=== PATIENT | male | born 1975 | race Native Hawaiian/Other Pacific Islander ===

== ENCOUNTER 2017-03-24 14:42 | Emergency (ER) | payer OTHER ==
--- NOTE | 2017-03-24 15:33 | XRay Report ---
ROUTINE CHEST, TWO VIEWS: PA and lateral views demonstrate the heart and mediastinal contour to be of normal size and shape. The lungs are clear but hypoventilated and the soft tissues and bony structures are normal. IMPRESSION: Normal study. Hypoventilation.
--- NOTE | 2017-03-24 20:18 | Emergency Department Report ---
ED ENT HPI - General Chief complaint: Upper Respiratory Infection Stated complaint: SORE THROAT Time Seen by Provider: 03/24/17 19:45 Source: patient, family Mode of arrival: Ambulatory Limitations: Language Barrier - History of Present Illness Initial comments: PT c/o sore throat and cough since yesterday. PT states he is coughing up phlem. PT states his has had the same symptoms. PT states he has not taken anything for his symptoms. PT states he was sent home from work today after his boss heard him coughing MD complaint: sore throat Onset/Timin -: Gradual, days(s) Location: throat Severity: mild Quality: constant Consistency: constant Worsens with: swallowing, eating Associated Symptoms: fever (subjective, last night), cough, pain with swallowing , sore throat, rhinorrhea. denies: discharge from ear - Related Data Previous Rx's Medication Instructions Recorded Last Taken Type Benzonatate [Tessalon Perles] 100 mg PO Q8HR PRN #12 capsule 03/24/17 Unknown Rx Cetirizine HCl [ZyrTEC] 10 mg PO DAILY #7 capsule 03/24/17 Unknown Rx Ibuprofen [Motrin] 600 mg PO Q8H PRN #15 tablet 03/24/17 Unknown Rx Allergies Allergy/AdvReac Type Severity Reaction Status Date / Time guaifenesin [From Robitussin] AdvReac Rash Verified 03/24/17 15:01 ED Dental HPI - General Chief complaint: Upper Respiratory Infection Stated complaint: SORE THROAT Time Seen by Provider: 03/24/17 19:45 Source: patient Mode of arrival: Ambulatory Limitations: Language Barrier - Related Data Previous Rx's Medication Instructions Recorded Last Taken Type Benzonatate [Tessalon Perles] 100 mg PO Q8HR PRN #12 capsule 03/24/17 Unknown Rx Cetirizine HCl [ZyrTEC] 10 mg PO DAILY #7 capsule 03/24/17 Unknown Rx Ibuprofen [Motrin] 600 mg PO Q8H PRN #15 tablet 03/24/17 Unknown Rx Allergies Allergy/AdvReac Type Severity Reaction Status Date / Time guaifenesin [From Robitussin] AdvReac Rash Verified 03/24/17 15:01 ED Review of Systems ROS: Stated complaint: SORE THROAT Other details as noted in HPI Comment: All other systems reviewed and negative Constitutional: fever ENT: as per HPI, throat pain Respiratory: see HPI, cough. denies: wheezing Gastrointestinal: denies: abdominal pain, nausea, vomiting Musculoskeletal: denies: back pain ED Past Medical Hx - Past Medical History Previous Medical History?: No Hx Hypertension: No - Surgical History Past Surgical History?: No - Social History Smoking Status: Never Smoker Substance Use Type: Alcohol - Medications Home Medications: Home Medications Medication Instructions Recorded Confirmed Last Taken Type Benzonatate [Tessalon Perles] 100 mg PO Q8HR PRN #12 capsule 03/24/17 Unknown Rx Cetirizine HCl [ZyrTEC] 10 mg PO DAILY #7 capsule 03/24/17 Unknown Rx Ibuprofen [Motrin] 600 mg PO Q8H PRN #15 tablet 03/24/17 Unknown Rx ED Physical Exam - General Limitations: No Limitations General appearance: alert, in no apparent distress - Head Head exam: Present: atraumatic, normocephalic, normal inspection, other (no sinus tenderness ) - Eye Eye exam: Present: normal appearance. Absent: PERRL, EOMI, conjunctival injection, nystagmus - ENT ENT exam: Present: mucous membranes moist, TM's normal bilaterally, normal external ear exam - Expanded ENT Exam Expanded Mouth exam: Present: tongue normal. Absent: drooling, trismus, tongue elevation Throat exam: Positive: other (moderate amount of clear post nasal drainage). Negative: tonsillar erythema, tonsillomegaly, tonsillar exudate - Neck Neck exam: Present: normal inspection, full ROM. Absent: tenderness, lymphadenopathy - Respiratory Respiratory exam: Present: normal lung sounds bilaterally, other (pt does have a cough during exam). Absent: respiratory distress, wheezes, rhonchi - Cardiovascular Cardiovascular Exam: Present: regular rate, normal rhythm, normal heart sounds - GI/Abdominal GI/Abdominal exam: Present: soft, normal bowel sounds. Absent: tenderness - Extremities Exam Extremities exam: Present: normal inspection, full ROM - Back Exam Back exam: Present: normal inspection, full ROM. Absent: tenderness, CVA tenderness (R), CVA tenderness (L), muscle spasm, paraspinal tenderness, vertebral tenderness - Neurological Exam Neurological exam: Present: alert, oriented X3 - Psychiatric Psychiatric exam: Present: normal affect, normal mood - Skin Skin exam: Present: warm, dry, intact ED Course Vital Signs 03/24/17 15:02 Temperature 98.7 F Pulse Rate 100 H Respiratory 18 Rate Blood Pressure 157/100 O2 Sat by Pulse 99 Oximetry - Reevaluation(s) Reevaluation #1: 03/24/17 20:20 PT aware of XR results. PT aware his symptoms are likely viral and that an antibiotic is not needed at this time. PT aware of plan of care. - Pulse Oximetry Interpretation Digit-Finger Initial Pulse Oximetry Readin Actions Taken: none ED Medical Decision Making - Radiology Data Radiology results: report reviewed CXR - NAP - Differential Diagnosis uri, bronchitis, pharyngitis, pna Critical Care Time: No Critical care attestation.: If time is entered above; I have spent that time in minutes in the direct care of this critically ill patient, excluding procedure time. ED Disposition Clinical Impression: Viral URI with cough Disposition: DISCHARGED TO HOME OR SELFCARE Is pt being admited?: No Does the pt Need Aspirin: No Condition: Stable Instructions: Upper Respiratory Infection (ED) Additional Instructions: rest increase water intake Follow up with PCP in 3-5 days, have your bp rechecked at follow up Avoid OTC medications that could raise your blood pressure, if you aren't sure - ask your pharmacist Prescriptions: Benzonatate [Tessalon Perles] 100 mg PO Q8HR PRN #12 capsule PRN Reason: Cough Cetirizine HCl [ZyrTEC] 10 mg PO DAILY #7 capsule Ibuprofen [Motrin] 600 mg PO Q8H PRN #15 tablet PRN Reason: Pain Referrals: PRIMARY CAREMD [Primary Care Provider] - 3-5 Days JACKSON WILLIS MD [Staff Physician] - 3-[address] [facility] [Outside] - 3-5 Days [facility] [Outside] - 3-5 Days Forms: Work/School Release Form(ED) Time of Disposition: 20:24
[2017-03-25 01:32] VITALS: BP 168/104
== END 2017-03-24 20:40 | disposition home or self-care (01) ==
LOC: EDBD → ED 14:42
DX: J06.9 Acute upper respiratory infection, unspecified (principal); Z88.8 Allergy status to other drugs, medicaments and biological substances
CPT/HCPCS: 71020; 99283

== ENCOUNTER 2017-03-26 02:59 | Emergency (ER) | payer OTHER ==
[2017-03-26 03:38] LABS: Basophils % (Auto) 0.2 % (0.0-1.8); Eosinophils % (Auto) 0.9 % (0.0-4.3); Hematocrit 42.3 % (35.5-45.6); Hemoglobin 14.5 gm/dl (11.8-15.2); Mean Corpuscular HGB Conc 34 % (32-34); Mean Corpuscular Hemoglobin 30 pg (28-32); Mean Corpuscular Volume 86 fl (84-94); Platelet Count 213 K/mm3 (140-440); Red Blood Count 4.93 M/mm3 (3.65-5.03); Red Cell Distribution Width 13.1 % (13.2-15.2); White Blood Count 8.9 K/mm3 (4.5-11.0)
[2017-03-26 04:02] LABS: Anion Gap 20 mmol/L; Blood Urea Nitrogen 14 mg/dL (9-20); Calcium 8.7 mg/dL (8.4-10.2); Carbon Dioxide 24 mmol/L (22-30); Chloride 97.9 mmol/L (98-107); Glucose 117 mg/dL (75-100); Potassium 4.2 mmol/L (3.6-5.0); Sodium 138 mmol/L (137-145)
--- NOTE | 2017-03-26 04:30 | Cat Scan Report ---
FINAL REPORT PROCEDURE: CT HEAD/BRAIN WO CON TECHNIQUE: Computerized tomography of the head was performed without contrast material. HISTORY: fall, , Dizzy, Eye Hematoma COMPARISON: No prior studies are available for comparison. FINDINGS: Skull and scalp: Normal. Paranasal sinuses: Normal. Ventricles and subarachnoid spaces: Normal. Cerebrum: No evidence of hemorrhage, acute infarction or mass . Cerebellum and brainstem: No evidence of hemorrhage, acute infarction or mass. Vasculature: Normal. Comments: None. IMPRESSION: There is no evidence of an acute intracranial process
--- NOTE | 2017-03-26 04:32 | Cat Scan Report ---
FINAL REPORT PROCEDURE: CT FACIAL BONES WO CON TECHNIQUE: Computerized tomography of the facial bones and soft tissues with axial and coronal sections performed from the cranial aspect of the frontal sinuses to the caudal portion of the mandible without contrast material. HISTORY: fall, , Dizzy, Eye Hematoma COMPARISON: No prior studies are available for comparison. FINDINGS: Bones: There is a slightly impacted right medial orbital wall fracture. The remaining osseous structures appear intact.. Paranasal sinuses: Mild opacification ethmoid sinuses.. Soft tissues: There is soft tissue swelling and orbital emphysema identified in the right upper orbit. The optic globes are normal. The extraocular muscles are normal.. Other: None. IMPRESSION: Soft tissue swelling along the upper right orbit with mild orbital emphysema. There is a slightly impacted right medial orbital wall fracture.
--- NOTE | 2017-03-26 04:33 | Cat Scan Report ---
FINAL REPORT PROCEDURE: CT CERVICAL SPINE WO CON TECHNIQUE: Computerized tomography of the cervical spine was performed from the skull base to T1 without contrast material. HISTORY: fall, , Dizzy, Eye Hematoma COMPARISON: No prior studies are available for comparison. FINDINGS: The alignment of the vertebral segments is normal. No acute fracture or dislocation of the cervical spine. Spinal canal is adequate at all levels. The visualized portion of the airway is patent IMPRESSION: Normal CT cervical spine.
[2017-03-26] MEDS ORDERED: AUGMENTIN 875 MG PO ONE (07:46)
[2017-03-26] MEDS ORDERED: NORCO 7.5/325 PO ONE (07:46)
--- NOTE | 2017-03-26 08:24 | Emergency Department Report ---
HPI - General Chief Complaint: Fall Time Seen by Provider: 03/26/17 06:59 - HPI HPI: The patient is a 41-year-old female who presents for evaluation of right eye pain. The patient states that at 1 AM last night, 6 hours prior to my eval, he fell out of a seat at his home and struck his face on the ground. He states the his pain has been constant since his injury, moderate to severe, throbbing in quality. He denies headache, vision change, neck pain or stiffness, chest pain , dyspnea, hemoptysis, abdominal pain. ED Past Medical Hx - Past Medical History Previous Medical History?: No Hx Hypertension: No - Surgical History Past Surgical History?: No - Social History Smoking Status: Never Smoker Substance Use Type: None - Medications Home Medications: Home Medications Medication Instructions Recorded Confirmed Last Taken Type Benzonatate [Tessalon Perles] 100 mg PO Q8HR PRN #12 capsule 03/24/17 Unknown Rx Cetirizine HCl [ZyrTEC] 10 mg PO DAILY #7 capsule 03/24/17 Unknown Rx Ibuprofen [Motrin] 600 mg PO Q8H PRN #15 tablet 03/24/17 Unknown Rx Amoxicillin 500 mg PO TID #20 capsule 03/26/17 Unknown Rx HYDROcodone/APAP 7.5-325 [Jerome 1 each PO Q8HR PRN #14 tablet 03/26/17 Unknown Rx 7.5-325 mg TAB] ED Review of Systems ROS: Stated complaint: FALL/RT EYE INJURY Other details as noted in HPI Constitutional: denies: fever HEENT: reports right periocular pain denies: throat or neck pain Respiratory: denies: cough, shortness of breath Cardiovascular: denies: chest pain Endocrine: denies unexplained weight loss or gain Gastrointestinal: denies: abdominal pain, nausea Genitourinary: denies: dysuria Musculoskeletal: denies: leg swelling Skin: denies: rash Neurological: denies: headache Hematological/Lymphatic: denies: easy bleeding or easy bruising Psych: denies sadness or hopelessness Physical Exam - Physical Exam Vital Signs: Vital Signs 03/26/17 03/26/17 03/26/17 03:10 05:26 07:58 Temperature 98.3 F 98.3 F Pulse Rate 77 73 Respiratory 20 18 16 Rate Blood Pressure 155/103 158/102 [Right] O2 Sat by Pulse 98 97 Oximetry Physical Exam: General: well-nourished, well-developed, no acute distress Head: Normocephalic, right periocular swelling present Eyes: normal sclera, no enophthalmos or no conjunctival injection, PERRL, EOMI, no pain produced with EO movements ENT: Mucous membranes are pink and moist Neck: trachea midline, neck supple, No neck stiffness, no cervical adenopathy, no neck tenderness Respiratory: Breath sounds equal bilaterally, no wheezing, rales, or rhonchi Cardio: S1 and S2 present, no murmurs, rubs, gallops, capillary refill is brisk Abdomen: Normoactive bowel sounds, soft abdomen, no tenderness Chest WALL/Back: No tenderness to palpation of the chest wall, no CVA tenderness with percussion, no midline cervical, thoracic, or lumbar spinous tenderness to palpation, no spinous step-off or obvious deformity Musc: No pitting edema Skin: No rash Neuro: Alert oriented 3, no facial drooping, normal speech, no sensation motor deficits in the arms or legs, reflexes 2+ symmetric on DTR testing, no coordination deficit with finger to nose testing, Romberg negative, patient able to ablate without abnormal gait Psych: Normal affect ED Course Vital Signs 03/26/17 03/26/17 03/26/17 03:10 05:26 07:58 Temperature 98.3 F 98.3 F Pulse Rate 77 73 Respiratory 20 18 16 Rate Blood Pressure 155/103 158/102 [Right] O2 Sat by Pulse 98 97 Oximetry ED Medical Decision Making - Lab Data Result diagrams: 03/26/17 03:23 03/26/17 03:23 - Medical Decision Making The patient was seen and examined by myself. The patient is placed on a teletypesetter monitor and continuous pulse ox. On initial evaluation, the patient was found to be in no distress. Evaluation orders were placed. The patient given a tablet of Jerome for his pain. CT scan the facial bones reveals a right medial orbital wall fracture. CT scan the head is unremarkable. Other images are negative. Labs results are not concerning. As there is no extraocular muscle entrapment, no proptosis or enophthalmos, no visual deficit, and the patient is stable for discharge. The patient is given a tablet of Augmentin for prophylactic coverage of orbital wall fracture. The patient was reevaluated and reported that their symptoms were markedly improved. The patient is stable for discharge with outpatient follow-up. The patient is given follow-up and return instructions, including to follow-up with the referred maxillofacial surgeon. The patient expressed understanding and agreed with the plan. The patient is discharged in stable condition. Critical care attestation.: If time is entered above; I have spent that time in minutes in the direct care of this critically ill patient, excluding procedure time. ED Disposition Clinical Impression: Acute post-traumatic headache, not intractable Fall from standing Qualifiers: Encounter type: initial encounter Qualified Code(s): W19.XXXA - Unspecified fall, initial encounter Closed medial orbital wall fracture Qualifiers: Encounter type: initial encounter Qualified Code(s): S02.80XA - Fracture of other specified skull and facial bones, unspecified side, initial encounter for closed fracture Disposition: DISCHARGED TO HOME OR SELFCARE Is pt being admited?: No Does the pt Need Aspirin: No Condition: Stable Instructions: Facial Fracture (ED), Upper Respiratory Infection (ED), Acute Headache (ED) Additional Instructions: Do not take more than the prescribed dose of norco/pain medicine, or combine or take the pain medicine prescribed to you today with other pain medicine, sleeping medicine or other sedatives, or with alcohol, as doing so may cause central nervous system sedation and respiratory depression, and potentially cause you to stop breathing and . Additionally, do not drive a vehicle, operate heavy machinery, or engage in any activity that would cause harm to yourself or others after taking the pain medicine prescribed to you. Prescriptions: Amoxicillin 500 mg PO TID #20 capsule HYDROcodone/APAP 7.5-325 [Jerome 7.5-325 mg TAB] 1 each PO Q8HR PRN #14 tablet PRN Reason: Pain Referrals: DUNCAN HERRERA DDS [Staff Physician] - 3-5 Days Time of Disposition: 07:17 Print Language: AUSTRALIAN
--- NOTE | 2017-03-26 09:23 | XRay Report ---
Chest 2 views: History: Shortness of breath. Findings: Normal cardiomediastinal silhouette. Trachea is midline. No consolidation, pneumothorax or pleural effusion. Impression: No acute cardiopulmonary findings.
[2017-03-26 09:51] VITALS: BP 127/77
== END 2017-03-26 09:49 | disposition home or self-care (01) ==
LOC: ED 02:59
DX: S02.80XA Fracture of other specified skull and facial bones, unspecified side, initial encounter for closed fracture (principal); G44.319 Acute post-traumatic headache, not intractable; W07.XXXA Fall from chair, initial encounter; Y93.89 Activity, other specified; Y99.8 Other external cause status; Y92.89 Other specified places as the place of occurrence of the external cause
CPT/HCPCS: 36415; 70450; 70486; 71020; 72125; 80048; 84484; 85025; 87040; 93005; 93010